=== PATIENT | female | born 1965 | race Caucasian/White ===

== ENCOUNTER → 2023-05-31 17:40 | Outpatient (REF) | payer OTHER, SELFPAY | LOC: MRI 3T 17:40 | PROVIDERS: ATTENDING PHYSICIAN Orthopaedic Surgery; FAMILY PHYSICIAN Internal Medicine | DX: M25.561 Pain in right knee (principal) | CPT/HCPCS: 73721 ==

== ENCOUNTER → 2024-03-28 11:32 | Outpatient (REF) | payer OTHER, SELFPAY | LOC: HWWDC 11:32 | PROVIDERS: ATTENDING PHYSICIAN Obstetrics & Gynecology; FAMILY PHYSICIAN Internal Medicine | DX: Z12.31 Encounter for screening mammogram for malignant neoplasm of breast (principal) | CPT/HCPCS: 77063; 77067 ==

== ENCOUNTER → 2024-04-02 10:14 | Outpatient (REF) | payer OTHER, SELFPAY | LOC: WDC 10:14 | PROVIDERS: ATTENDING PHYSICIAN Obstetrics & Gynecology; FAMILY PHYSICIAN Internal Medicine | DX: R92.8 Other abnormal and inconclusive findings on diagnostic imaging of breast (principal) | CPT/HCPCS: 76642 ==

== ENCOUNTER → 2024-04-09 06:59 | Outpatient (REF) | payer OTHER, SELFPAY ==
--- NOTE | 2024-04-09 09:07 | OID.BR.INTR ---
[facility] Breast Navigator - Initial
- -
Date of Contact: 04/09/24
Met with patient. Patient given written information on navigator services available at [facility]. Will follow up as needed per protocol.
== END ==
LOC: WDC 06:59
PROVIDERS: ATTENDING PHYSICIAN Obstetrics & Gynecology
DX: R92.1 Mammographic calcification found on diagnostic imaging of breast (principal)
CPT/HCPCS: 88305; 19081; 76098; 88341; 88342; 88360; A4648

== ENCOUNTER → 2024-05-14 10:20 | Outpatient (REF) | payer OTHER, SELFPAY | LOC: WDC 10:20 | PROVIDERS: ATTENDING PHYSICIAN Surgery | DX: D05.91 Unspecified type of carcinoma in situ of right breast (principal) | CPT/HCPCS: 19281; A4648 ==

== ENCOUNTER → 2024-05-15 07:30 | Outpatient (REF) | payer OTHER, SELFPAY | LOC: WDC 07:30 | PROVIDERS: ATTENDING PHYSICIAN Surgery | DX: D05.91 Unspecified type of carcinoma in situ of right breast (principal) | CPT/HCPCS: 88305; 88307; 76098 ==

== ENCOUNTER 2024-05-18 07:45 | Emergency (ER) | payer OTHER, SELFPAY ==
[2024-05-18 07:57] VITALS: BP 105/62
[2024-05-18 07:58] VITALS: BMI 22.8
[2024-05-18 08:00] VITALS: BP 106/69
--- NOTE | 2024-05-18 08:38 | ED.GENMED ---
History of Present Illness
General
Chief Complaint: Fainting/Passed Out
Source: patient and spouse
Exam Limitations: none
Time Seen by Provider: 05/18/24 07:55
Nursing documentation reviewed up to this point in time: agreed with
History of Present Illness
History of Present Illness:
58-year-old female presenting to the emergency department today with concerns of an episode where she got out of bed was prepping to take a shower she took off some bandages to her right breast where she had a lumpectomy 2 days ago. She felt very
lightheaded was able to lower self mostly to the floor but felt that she for the most part lost consciousness may have hit the left back. Her was on scene within a few seconds and saw her shaking with her eyes rolling backward. This lasted
for less than a minute and then fully resolved. No significant confusion episode after the event. She denies any preceding pain shortness of breath palpitations. No leg swelling no history of blood clots. She otherwise feels well at this point
Review of Systems
Review of Systems
Allergies reviewed?: Yes
All Other Systems: ROS reviewed and negative except as documented in HPI and ROS
Phy Exam
Physical Exam
Physical Exam:
GENERAL: Alert , in no apparent distress
EYE: pupils equal and reactive
NECK: Supple, no significant adenopathy.
ENT: o/p clr, mmm.
CARDIAC: Regular rate and rhythm .
LUNGS: Well-healing surgical incision to the right lateral breast some surrounding bruising but no redness or warmth no tenderness no fluctuance or induration clear breath sounds bilaterally, no acute respiratory distress, no wheezes/rales/rhonchi
ABDOMEN: Soft, without focal tenderness, no r/g, no cvat
NEUROLOGICAL: Alert and oriented, no focal neuro deficits
SKIN: Warm and dry, skin intact.
MUSCULOSKELETAL: No edema, well perfused.
PSYCH: Normal and appropriate interaction.
Course
Orders/Labs/Results
Orders:
Orders
05/18/24 07:59
Electrocardiogram (*1) Urgent
Reason for Study: Syncope
EKG- Treatment ONCE
05/18/24 08:55
CMP [Comprehensive Metabolic Panel] Urgent
Complete Blood Count/With Diff Urgent
D-Dimer Urgent
05/18/24 09:23
CT Chest PE Study Urgent
Comment:
Reason For Exam: syncope, recent surgery right breast
Abnormal Lab Results
05/18/24
08:55
WBC 4.7 L 10^3/uL
(4.8-10.8)
RBC 3.82 L 10^6/uL
(4.20-5.40)
Hgb 11.4 L g/dL
(12.0-16.0)
Hct 34.3 L %
(37.0-47.0)
D-Dimer 1.83 H ug/mlFEU
(0.00-0.50)
Chloride 108 H mmol/L
(98-107)
Total Protein 5.9 L g/dl
(6.3-8.2)
Albumin 3.4 L g/dl
(3.5-5.0)
05/18/24 08:55
05/18/24 08:55
Vital Signs
Initial and Last Documented VS:
Initial Vital Signs
Pulse Resp Pulse Ox
60 13 100
05/18/24 07:56 05/18/24 07:56 05/18/24 07:56
Last Documented Vital Signs
Temp Pulse Resp BP Pulse Ox
98.5 F 75 17 100/88 97
05/18/24 07:57 05/18/24 09:30 05/18/24 09:30 05/18/24 09:00 05/18/24 09:30
MDM/Problems Addressed
MDM/Problems Addressed:
58-year-old female presenting to the emergency department today with concerns of an episode where she passed out prepping to take a shower after taking off bandages to a recent lumpectomy site. Otherwise claims to be seemingly healing well after
the lumpectomy. Denies any preceding chest pain palpitations or shortness of breath. Was shaking to a small extent according to the for a brief moment while she was passing out lasted less than a minute woke up without significant
confusion does not seem to be consistent with seizure postictal event. Normal neurologic evaluation here. No visible signs of trauma to the head or neck. Considering her recent surgical procedure D-dimer sent to rule out possibility of blood clot
however vasovagal is the most likely scenario concerning this occurred just after removing a bandage she self her claims that she does not like seeing blood. Here the workup is normal CT PE was obtained due to an elevated D-dimer. This did not
show any emergent findings stable for outpatient management return precautions given. Symptoms likely vasovagal.
*Critical Care Note
Total Time (30-74mins, 75-104mins- exclusive of procedures): Not Applicable
ED Attending Note
-
Portions of this chart may have been created with voice recognition software.� Occasional wrong word or��sound alike� substitutions may have occurred due to the inherent limitations of voice recognition software.
Discharge Plan
Departure
Patient Disposition: Home (Routine Discharge)
Date of Disposition: 05/18/24
Time of Disposition: 11:40
Patient with high blood pressure during this ER visit?: No
Condition: Good
Covid-19: Not Applicable
Discharge Problem:
Syncope
Instructions: Syncope (Fainting) (DC)
Referrals:
Zaki Drew DO [Family Provider] -
Activity Restrictions/Additional Instructions:
You came to the emergency department today with concerns after passing out. Here you have a reassuring assessment. Please follow closely as an outpatient with your primary care doctor and your surgeon. Return for any worsening, new or concerning
symptoms.
Interventions
Interventions:
*Risk Screen - Suicide Last Done: 05/18/24 07:49
*General Assessment Last Done: 05/18/24 07:49
*Neglect/Abuse Screening Last Done: 05/18/24 07:49
*ED COVID-19 Vaccine History Last Done: 05/18/24 08:09
ED- Cardiac Assessment Last Done: 05/18/24 08:10
ED- Neurological Assessment Last Done: 05/18/24 08:10
Discharge Date and Time
Print Language: NIGERIEN
[2024-05-18 09:00] VITALS: BP 100/88
[2024-05-18 09:06] LABS: % Basophils 0.4 % (0-2); % Eosinophils 3.9 % (0-6); % Immature Granulocytes 0.4 % (0-0.5); % Lymphocytes 32.5 % (20.5-51.1); % Monocytes 7.1 % (1.7-9.3); % Neutrophils 55.7 % (42.2-75.2); Absolute Eosinophils 0.2 10^3/uL (0-0.7); Absolute Lymphocytes 1.5 10^3/uL (1.2-3.4); Absolute Monocytes 0.3 10^3/uL (0.1-0.6); Absolute Neutrophils 2.6 10^3/uL (1.4-6.5); Hematocrit 34.3 % (37.0-47.0); Hemoglobin 11.4 g/dL (12.0-16.0); Mean Corp Hgb Conc. 33.2 g/dL (33.0-37.0); Mean Corpuscular Hgb 29.8 pg (27.0-31.0); Mean Corpuscular Volume 89.8 fL (81.0-99.0); Mean Platelet Volume 10.1 fL (7.4-10.4); Nucleated Red Blood Cells % 0 %; Platelet Count 215 10^3/uL (130-400); Red Blood Cell Count 3.82 10^6/uL (4.20-5.40); Red Cell Dist. Width 12.7 % (11.5-14.5); White Blood Cell Count 4.7 10^3/uL (4.8-10.8)
[2024-05-18 09:14] LABS: ALT (SGPT) 19 U/L (0-35); AST (SGOT) 28 U/L (14-36); Albumin 3.4 g/dl (3.5-5.0); Alkaline Phosphatase 42 U/L (38-126); Blood Urea Nitrogen 17 mg/dl (7-17); Calcium 8.7 mg/dl (8.4-10.2); Carbon Dioxide 27 mmol/L (22-30); Chloride 108 mmol/L (98-107); Estimated Creatinine Clearance 59 ml/min; Glucose 89 mg/dl (70-99); Potassium 4.1 mmol/L (3.5-5.1); Sodium 137 mmol/L (135-145); Total Bilirubin 0.5 mg/dl (0.2-1.3); Total Protein 5.9 g/dl (6.3-8.2); eGFR > 60.00
[2024-05-18 09:15] LABS: D-Dimer 1.83 ug/mlFEU (0.00-0.50)
[2024-05-18 11:54] VITALS: BP 105/61
== END 2024-05-18 11:58 | disposition home or self-care (01) ==
LOC: EMR 07:45
PROVIDERS: Physician Assistant; EMERGENCY PHYSICIAN Emergency Medicine; FAMILY PHYSICIAN Internal Medicine
DX: R55 Syncope and collapse (principal); R79.1 Abnormal coagulation profile; Z98.890 Other specified postprocedural states
CPT/HCPCS: 99284; 71275; 80053; 85025; 85379; 93005; Q9967

== ENCOUNTER 2024-06-01 06:05 | Day surgery (SDC) | payer OTHER, SELFPAY ==
[2024-06-01] VITALS (9 sets, daily range): BP systolic 101–113; BP diastolic 58–73; BMI 29.3
[2024-06-01] MEDS: TYLENOL 1000 MG PO (11:36)
[2024-06-01] MEDS: NORMOSOL-R/PLASMALYTE-A 1000 IV (11:37)
--- NOTE | 2024-06-01 15:53 | W.IMMPOSTOP ---
Surgical Immed Post Op Note
-
Primary Surgeon: Hilaria
Assisting Surgeon: None
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
Procedure Performed: Evacuation right breast hematoma
Anesthesia Type: General with LMA
Specimen / Cultures: None
Estimated Blood Loss: 10cc
Complications: None
Operative Findings: No active bleeding
--- NOTE | 2024-06-01 15:54 | OR.RPT ---
Operative Report
Operative Report
Procedure date: 06/01/24
Pre-Op DX: Right breast hematoma after lumpectomy
Post-Op DX: Right breast hematoma after lumpectomy
Procedure: Evacuation right breast hematoma
Surgeon: Hilaria
The patient is a 58-year-old female who presented with a delayed hematoma after right lumpectomy for the treatment of DCIS. The patient presents now for evacuation. She presented to the same-day surgical suite where she was prepped and DVT and
antibiotic prophylaxis were provided. She verified site and procedure and was taken to the operating room.
In the supine position general anesthesia was induced with an LMA mask and the right breast was prepped and draped in usual sterile fashion. Appropriate timeout was performed and tissues were anesthetized with 1% lidocaine plain. Previous
lumpectomy incision was opened sharply with the blade. A portion of the had opened and this incision was extended slightly inferiorly to gain better visualization of the resection cavity. Clotted hematoma was removed manually. The area was
copiously irrigated with saline. Careful inspection of all tissues was made and no active bleeding was found. The cautery was used to seal all tissues. Laterally the oncoplastic plane was entered and elevated. Marcaine 0.5% plain was instilled
into all tissues and a portion of Surgicel was placed in the resection cavity. Deep and intermediate tissues were closed using simple interrupted 3-0 Vicryl. Skin was closed using simple interrupted 4-0 Vicryl and a running subcuticular 4-0
Monocryl with a few external sutures for extra support. Surgical glue and a sterile compressive dressing were applied. All sponge needle and instrument counts were correct and the patient was transferred to the recovery room in stable condition
([id number])
== END 2024-06-01 16:51 | disposition home or self-care (01) ==
LOC: SDS 06:05
PROVIDERS: ATTENDING PHYSICIAN Surgery
DX: D05.91 Unspecified type of carcinoma in situ of right breast (principal)
CPT/HCPCS: 21501

== ENCOUNTER → 2024-06-22 12:32 | Outpatient (REF) | payer OTHER, SELFPAY ==
[2024-06-22 12:50] VITALS: BP 117/76; BP_SYST 80
[2024-06-22] MEDS: ATIVAN 0.5 MG IV (13:15)
[2024-06-22] MEDS: NSS (PRESERVATIVE FREE) 0.25 ML IV (13:16)
[2024-06-22 13:34] VITALS: BMI 21.0
[2024-06-22 14:12] VITALS: BP 108/63
== END ==
LOC: RADI 12:32
PROVIDERS: ATTENDING PHYSICIAN Surgery; FAMILY PHYSICIAN Internal Medicine
DX: N64.89 Other specified disorders of breast (principal)
CPT/HCPCS: 10030; 87070; 87147; 87186; 87205; C1729; C1769

== ENCOUNTER → 2024-06-26 13:00 | Outpatient (REF) | payer OTHER, SELFPAY ==
--- NOTE | 2024-06-26 13:44 | W.PN.UPDATE ---
Update Note
Progress Note Update
58 yo female s/p IR placed right breast drain for post op abscess in IR on 06/22/24. She is concerned the suture has been pulled out. She notes some drainage round the tube. Output was 20cc today which includes the 10 cc flush.
PE: Right breast drain still sutured in place. The skin is mildly indurated. No erythema. Some scant drainage on the dressing.
Bedside US shows drain within the collection. The collection is smaller than prior imaging
Micro: Staph Aureus. Pt is still on Bactrim. The cx is sensitive to Bactrim.
A/P: Keep dressing CDI
Decrease flush to 5cc
Continue abx as prescribed until finished
F/U with Dr. Manrique for drain removal
== END ==
LOC: RADI 13:00
PROVIDERS: ATTENDING PHYSICIAN Physician Assistant
DX: Z46.82 Encounter for fitting and adjustment of non-vascular catheter (principal); N61.1 Abscess of the breast and nipple; T85.9XXA Unspecified complication of internal prosthetic device, implant and graft, initial encounter
CPT/HCPCS: 76642

== ENCOUNTER 2024-11-14 16:18 | Emergency (ER) | payer OTHER, SELFPAY ==
[2024-11-14 16:23] VITALS: BP 116/78
[2024-11-14 17:06] LABS: Hematocrit 42.3 % (37.0-47.0); Hemoglobin 14.3 g/dL (12.0-16.0); Mean Corp Hgb Conc. 33.8 g/dL (33.0-37.0); Mean Corpuscular Volume 89.8 fL (81.0-99.0); Nucleated Red Blood Cells % 0 %; Platelet Count 259 10^3/uL (130-400); Red Cell Dist. Width 12.7 % (11.5-14.5); Urine Character Clear (Clear)
[2024-11-14 17:18] LABS: Urine Red Blood Cell 0-2 /HPF (0-2); Urine White Cell 0-2 /HPF (0-5)
[2024-11-14 17:20] LABS: ALT (SGPT) 33 U/L (0-35); AST (SGOT) 34 U/L (14-36); Albumin 4.3 g/dl (3.5-5.0); Alkaline Phosphatase 53 U/L (38-126); Blood Urea Nitrogen 8 mg/dl (7-17); Calcium 9.4 mg/dl (8.4-10.2); Carbon Dioxide 31 mmol/L (22-30); Chloride 101 mmol/L (98-107); Glucose 124 mg/dl (70-99); Lipase 100 U/L (23-300); Potassium 3.9 mmol/L (3.5-5.1); Sodium 136 mmol/L (135-145); Total Protein 7.0 g/dl (6.3-8.2); eGFR > 60.00
[2024-11-14] MEDS: NSS 1000 IV (18:59)
[2024-11-14] MEDS: TORADOL 30 MG IV (18:59)
--- NOTE | 2024-11-14 19:46 | ED.GENMED ---
History of Present Illness
General
Chief Complaint: Abdominal Pain
Source: patient
Exam Limitations: none
Time Seen by Provider: 11/14/24 18:12
Nursing documentation reviewed up to this point in time: agreed with
History of Present Illness
History of Present Illness:
59-year-old female presents with GI complaints, was at a tuesday night felt queasy afterward, no sick contacts no raw or undercooked food, vomited once or twice and had diarrhea since then has had increased abdominal cramping another episode
of vomiting with more diarrhea called telehealth got some Usha felt better but then pain worsened had low-grade fevers, no blood in her stool again no foreign travel no antibiotic
Phy Exam
Physical Exam
Physical Exam:
Physical Exam
General: no apparent distress, not acutely ill
Neck: No jaundice
Heart: s1/s2 regular rate and rhythm, no murmur. equal radial pulses.
Lungs: no acute respiratory distress. clear bilaterally
Abdomen: Soft mild epigastric tenderness mild lower abdominal tenderness
Neuro: alert and oriented. no focal neurological deficits
Skin: no rash
Psychiatric: well kept. interactive and cooperative
Extremities: no edema.
Course
Orders/Labs/Results
Orders:
Orders
11/14/24 16:22
IV Insert/Care/Rem.- Treatment PRN
11/14/24 16:45
Complete Blood Count/With Diff Urgent
Comprehensive Metabolic Panel Urgent
Lipase Urgent
Urinalysis Reflex To Culture Urgent
Date Specimen was Collected: 11/14/24
Time Specimen was Collected: 16:22
Urine Microscopic Reflex Cult Urgent
Urine Culture Urgent
SHEILA Source: U
Specimen Description:
Date Specimen was Collected: 11/14/24
Time Specimen was Collected: 16:22
11/14/24 18:44
CT Abd/pelvis W Iv Cont Urgent
Comment:
Reason For Exam: pain
Norovirus by PCR Urgent
SHEILA Source: Feces/Stool
Specimen Description:
STOOL [C difficile Antigen & Toxins] Urgent
SHEILA Source: Feces/Stool
Specimen Description:
Stool Culture Urgent
SHEILA Source: Feces/Stool
Specimen Description:
0.9% Sodium Chloride 1000 ml [Nss] 1,000 ml IV BOLUS
Ketorolac [Toradol] 30 mg IV NOW STA
11/14/24 20:24
Dicyclomine [Bentyl] 20 mg PO NOW STA
HYDROmorphone [Dilaudid] 0.5 mg IV NOW STA
Abnormal Lab Results
11/14/24
16:45
Absolute Lymphs (auto) 0.9 L 10^3/uL
(1.2-3.4)
Lymphocytes % 14.4 L %
(20.5-51.1)
Monocytes % 10.7 H %
(1.7-9.3)
Carbon Dioxide 31 H mmol/L
(22-30)
Glucose 124 H mg/dl
(70-99)
Ur Occult Blood Reflex 2+ A
(Negative)
Leukocyte Esterase Rfl 1+ A
(Negative)
Urine Bacteria (Reflex) Few A
(Negative)
Urine Albumin (Reflex) 1+ A
(Neg - Trace)
11/14/24 16:45
11/14/24 16:45
Vital Signs
Initial and Last Documented VS:
Initial Vital Signs
Temp Pulse Resp BP Pulse Ox
98.3 F 74 14 116/78 98
11/14/24 16:23 11/14/24 16:23 11/14/24 16:23 11/14/24 16:23 11/14/24 16:23
Last Documented Vital Signs
Temp Pulse Resp BP Pulse Ox
98.3 F 74 14 116/78 98
11/14/24 16:23 11/14/24 16:23 11/14/24 16:23 11/14/24 16:23 11/14/24 19:47
MDM/Problems Addressed
Differential Diagnosis Includes:
Colitis infectious diarrhea biliary colic likely appendicitis
MDM/Problems Addressed:
Abdominal symptoms
*Radiology
Radiology exam reviewed: radiology read reviewed
*Pulse Oximetry
SaO2: 98
Oxygen Mode of Delivery: Room air
Patient hypoxic: no
*Critical Care Note
Total Time (30-74mins, 75-104mins- exclusive of procedures): Not Applicable
Update Note
Update Note:
825, patient overall feeling better does still have some cramps to try to get her comfortable, do not see any clear indication for antibiotics nor surgery, although she has not given a stool specimen,
ED Attending Note
-
Portions of this chart may have been created with voice recognition software.� Occasional wrong word or��sound alike� substitutions may have occurred due to the inherent limitations of voice recognition software.
Discharge Plan
Departure
Patient Disposition: Home (Routine Discharge)
Date of Disposition: 11/14/24
Time of Disposition: 20:26
Patient with high blood pressure during this ER visit?: No
Condition: Good
Discharge Problem:
Abdominal pain
Instructions: Diarrhea in teens and adults, Clear Liquid Diet, Abdominal Pain
Prescriptions:
New
dicyclomine 20 mg tablet
20 mg PO QID PRN (Reason: abdominal cramps) Qty: 20 0RF
No Action
acetaminophen [Tylenol] 325 mg Tablet
650 mg PO Q4H PRN (Reason: pain)
gabapentin 100 mg Tablet
100 mg PO .QHS
multivitamin Tablet
1 tab PO DAILY
sulfamethoxazole-trimethoprim [Bactrim] 400-80 mg Tablet
1 tab PO BID
Referrals:
Zaki Drew DO [Family Provider, Internal Medicine] - Next open appointment
Activity Restrictions/Additional Instructions:
Treat plenty of fluids, continue nausea medicines as previously prescribed
Bentyl up to 4 times a day for abdominal cramping
Interventions
Interventions:
*Risk Screen - Suicide Last Done: 11/14/24 16:23
*General Assessment Last Done: 11/14/24 16:23
*Neglect/Abuse Screening Last Done: 11/14/24 16:23
*ED COVID-19 Vaccine History Last Done: 11/14/24 16:23
XC-Pxafyx-Eevwfbuqrz Assessment Last Done: 11/14/24 18:43
Discharge Date and Time
Print Language: AZERI
[2024-11-14] MEDS: BENTYL 20 MG PO (20:47)
[2024-11-14] MEDS: DILAUDID 0.5 MG IV (20:47)
== END 2024-11-14 22:16 | disposition home or self-care (01) ==
LOC: EMR 16:18
PROVIDERS: EMERGENCY PHYSICIAN Emergency Medicine; FAMILY PHYSICIAN Internal Medicine
DX: R10.13 Epigastric pain (principal)
CPT/HCPCS: 99284; 96374; 74177; 80053; 81003; 81015; 83690; 85025; 87086; Q9967

== ENCOUNTER 2024-11-17 09:27 | Emergency (ER) | payer OTHER, SELFPAY ==
[2024-11-17 09:30] VITALS: BP 113/81
--- NOTE | 2024-11-17 10:11 | ED.GENMED ---
History of Present Illness
General
Chief Complaint: Abdominal Pain
Source: patient and records
Exam Limitations: none
Time Seen by Provider: 11/17/24 09:54
History of Present Illness
History of Present Illness:
59yoF with a history of breast cancer (finished radiation in July of this year) presenting for evaluation of dark urine. Patient was seen in the ED 3 days ago for abdominal pain and diarrhea that began after she attended a wedding. CT scan was
obtained during her ED visit which showed evidence of gastroenteritis. She was discharged with a prescription for dicyclomine. Patient had recurrent pain the night after she was discharged and she was seen by her PCP the following day. She was
started on a course of Levaquin and Flagyl for presumed diverticulitis and was given a prescription for hyoscyamine. Her abdominal pain has since improved and it is now mostly a discomfort in her lower abdomen as opposed to the sharp pain she was
having a few days ago. Diarrhea has resolved and her last bowel movement was 3 days ago. She reports nausea, belching, and decreased p.o. intake but has not vomited. She urinated this morning and her urine appeared dark. She called her PCP
office today and was advised to go to the ED for evaluation. There have been no fevers. No previous abdominal surgeries.
Phy Exam
General Physical Exam
General Presentation: well appearing and no apparent distress
General Skin: warm and dry
General Habitus: normal
General Mental: alert
ENT Exam
ENT Exam: TM's normal and normocephalic
Cardiovascular Exam
Cardiovascular Exam: regular rate/rhythm and no murmur
Pulmonary Exam
Pulmonary Exam: lungs clear, no respiratory distress, no rales, no crackles, no rhonchi and no wheezing
Gastrointestinal Exam
Gastrointestinal Exam: soft, non distended and other (Mild tenderness throughout lower abdomen. Abdomen soft, non-distended. No rebound or guarding.)
Neurological Exam
Neurological Exam: alert
Odd Coma Scale
Eye Opening: Spontaneous
Verbal Response: Oriented
Motor Response: Obeys Commands
GCS Total Score: 15
Skin Exam
Skin Exam: normal color and warm/dry
Psychiatric Exam
Psychiatric Exam: normal mood/affect
Course
Orders/Labs/Results
Orders:
Orders
11/17/24 10:10
0.9% Sodium Chloride 1000 ml [Nss] 1,000 ml IV BOLUS
11/17/24 10:27
Complete Blood Count/With Diff Urgent
Comprehensive Metabolic Panel Urgent
Lipase Urgent
Magnesium Urgent
Total CK [Creatine Phosphokinase] Urgent
Urinalysis Reflex To Culture Urgent
Date Specimen was Collected: 11/17/24
Time Specimen was Collected: 10:16
Urine Microscopic Reflex Cult Urgent
Urine Culture Urgent
SHEILA Source: U
Specimen Description:
Date Specimen was Collected: 11/17/24
Time Specimen was Collected: 10:16
Abnormal Lab Results
11/17/24
10:27
Absolute Neuts (auto) 7.0 H 10^3/uL
(1.4-6.5)
Absolute Lymphs (auto) 1.1 L 10^3/uL
(1.2-3.4)
Absolute Monos (auto) 0.8 H 10^3/uL
(0.1-0.6)
Neutrophils % 77.6 H %
(42.2-75.2)
Lymphocytes % 12.1 L %
(20.5-51.1)
Glucose 104 H mg/dl
(70-99)
Ur Occult Blood Reflex 1+ A
(Negative)
Leukocyte Esterase Rfl 3+ A
(Negative)
Urine WBC (Reflex) 11-15 A /HPF
(0-5)
Urine Bacteria (Reflex) Moderate A
(Negative)
Urine Albumin (Reflex) 1+ A
(Neg - Trace)
11/17/24 10:27
11/17/24 10:27
Vital Signs
Initial and Last Documented VS:
Initial Vital Signs
Temp Pulse Resp BP Pulse Ox
98.4 F 80 18 113/81 98
11/17/24 09:30 11/17/24 09:30 11/17/24 09:30 11/17/24 09:30 11/17/24 09:30
Last Documented Vital Signs
Temp Pulse Resp BP Pulse Ox
98.4 F 71 16 108/64 98
11/17/24 09:30 11/17/24 13:15 11/17/24 13:15 11/17/24 13:15 11/17/24 13:15
MDM/Problems Addressed
Differential Diagnosis Includes:
59yoF here with dark urine. Seen in ED 3 days ago for diarrhea and abd pain. CT showed gastroenteritis. These symptoms have improved but urine appeared brown today. VSS. She is well appearing in no distress. No signs of peritonitis on abdominal
exam. Differential diagnosis includes but is not limited to: dehydration, gastroenteritis, hyperbilirubinemia, less likely rhabdomyolysis
Initial ED plan: Check abdominal labs, magnesium, CK, and UA. No indication for repeat CT at this time as pain is improving. IV fluid bolus.
*Pulse Oximetry
SaO2: 98
Oxygen Mode of Delivery: Room air
Patient hypoxic: no (98%)
*Critical Care Note
Total Time (30-74mins, 75-104mins- exclusive of procedures): Not Applicable
Update Note
Update Note:
Labs unremarkable including normal white count, electrolytes, renal function, bilirubin, and CK. UA with 10-11 WBCs and moderate bacteria although >30/LPF squamous epithelial cells present suggesting contaminated sample. She has no urinary
symptoms other than dark urine and is currently on Levaquin which would cover for urinary tract infection. No indication for hospitalization. Supportive care discussed and prescription provided for Zofran. She was advised to follow-up closely
with her PCP and ED return precautions reviewed. Patient in agreement with plan and was discharged in stable condition.
ED Attending Note
-
Portions of this chart may have been created with voice recognition software.� Occasional wrong word or��sound alike� substitutions may have occurred due to the inherent limitations of voice recognition software.
Discharge Plan
Departure
Patient Disposition: Home (Routine Discharge)
Date of Disposition: 11/17/24
Time of Disposition: 12:05
Patient with high blood pressure during this ER visit?: No
Discharge Problem:
Dark urine
Instructions: Abdominal Pain
Prescriptions:
New
ondansetron 4 mg tablet,disintegrating
4 mg PO Q6H PRN (Reason: nausea and vomiting) Qty: 20 0RF
No Action
acetaminophen [Tylenol] 325 mg Tablet
650 mg PO Q4H PRN (Reason: pain)
gabapentin 100 mg Tablet
100 mg PO .QHS
multivitamin Tablet
1 tab PO DAILY
sulfamethoxazole-trimethoprim [Bactrim] 400-80 mg Tablet
1 tab PO BID
dicyclomine 20 mg tablet
20 mg PO QID PRN (Reason: abdominal cramps) Qty: 20 0RF
Referrals:
Zaki Drew DO [Family Provider, Internal Medicine]
Activity Restrictions/Additional Instructions:
Drink plenty of fluids. Eat a bland diet (bananas, rice, applesauce, toast). Take Zofran as needed for nausea.
Please follow-up with your family doctor next week. Return to the ER with any new or worsening symptoms including fevers or severe pain.
Interventions
Interventions:
*Risk Screen - Suicide Last Done: 11/17/24 09:32
*General Assessment Last Done: 11/17/24 09:32
*Neglect/Abuse Screening Last Done: 11/17/24 09:32
*ED- Fall Risk Assessment Last Done: 11/17/24 10:33
*ED COVID-19 Vaccine History Last Done: 11/17/24 10:33
*Nursing Disposition Last Done: 11/17/24 13:15
XX-Vaflnp-Mwtfhnllcb Assessment Last Done: 11/17/24 10:33
Discharge Date and Time
Discharge Date/Time: 11/17/24 13:27
Print Language: SIERRA LEONEAN
[2024-11-17 10:30] VITALS: BMI 20.8
[2024-11-17] MEDS: NSS 1000 IV (10:31)
[2024-11-17 10:38] VITALS: BP 118/79
[2024-11-17 10:50] LABS: Hematocrit 41.3 % (37.0-47.0); Hemoglobin 13.9 g/dL (12.0-16.0); Mean Corp Hgb Conc. 33.7 g/dL (33.0-37.0); Mean Corpuscular Volume 87.9 fL (81.0-99.0); Nucleated Red Blood Cells % 0 %; Platelet Count 237 10^3/uL (130-400); Red Cell Dist. Width 12.6 % (11.5-14.5)
[2024-11-17 11:00] LABS: Urine Character Clear (Clear)
[2024-11-17 11:01] LABS: ALT (SGPT) 21 U/L (0-35); AST (SGOT) 22 U/L (14-36); Albumin 4.1 g/dl (3.5-5.0); Alkaline Phosphatase 45 U/L (38-126); Blood Urea Nitrogen 11 mg/dl (7-17); Calcium 9.6 mg/dl (8.4-10.2); Carbon Dioxide 29 mmol/L (22-30); Chloride 103 mmol/L (98-107); Estimated Creatinine Clearance 69 ml/min; Glucose 104 mg/dl (70-99); Lipase 72 U/L (23-300); Magnesium 1.9 mg/dl (1.6-2.3); Potassium 4.2 mmol/L (3.5-5.1); Sodium 136 mmol/L (135-145); Total Protein 6.8 g/dl (6.3-8.2); eGFR > 60.00
[2024-11-17 11:10] LABS: Urine Red Blood Cell 0-2 /HPF (0-2); Urine Squamous Cell >30 /LPF (Few)
[2024-11-17 13:15] VITALS: BP 108/64
== END 2024-11-17 13:27 | disposition home or self-care (01) ==
LOC: EMR 09:27
PROVIDERS: Physician Assistant; EMERGENCY PHYSICIAN Emergency Medicine; FAMILY PHYSICIAN Internal Medicine
DX: R82.998 Other abnormal findings in urine (principal); Z85.3 Personal history of malignant neoplasm of breast; Z92.3 Personal history of irradiation
CPT/HCPCS: 99284; 96360; 80053; 81003; 81015; 82550; 83690; 83735; 85025; 87086